=== PATIENT | female | born 1945 | race African-American/Black ===

== ENCOUNTER 2021-05-13 07:58 | Emergency (ER) | payer MEDICARE, MEDICAID ==
[~2021-05-13] VITALS: Ht 162.6 cm; Wt 57.0 kg
[2021-05-13] MEDS ORDERED: MORPHINE SULFATE 4 MG/ML CPJ (NOT FOR IM USE) IV STA (09:10)
[2021-05-13] MEDS ORDERED: ONDANSETRON HCL 4MG/2ML INJ IV STA (09:10)
[2021-05-13] MEDS ORDERED: SODIUM CHLORIDE 0.9% 1,000 ML IV ONE (09:15)
[2021-05-13 09:51] LABS: BASOPHILS % 0.8 % (0.0-2.0); EOSINOPHILS % 0.1 % (0.0-5.0); HEMATOCRIT. 44.4 % (36.0-48.0); HEMOGLOBIN. 15.2 g/dL (12.0-16.0); LYMPHOCYTES % 14.1 % (20.0-50.0); MEAN CORPUSCULAR HEMOGLOBIN 30.7 pg (28.0-32.0); MEAN PLATELET VOLUME 8.5 fl (7.4-10.4); MONOCYTES % 10.3 % (2.0-8.0); NEUTROPHILS % 74.7 % (40.0-76.0); PLATELET 361 x1000/uL (130-400); RED BLOOD CELL COUNT 4.94 mill/uL (4.2-5.4); RED CELL DISTRIBUTION WIDTH 13.4 % (11.6-14.6)
[2021-05-13 09:56] LABS: CHLORIDE 101 mEq/L (98-107)
[2021-05-13] MEDS ORDERED: ONDANSETRON HCL 4MG/2ML INJ IV ONE (11:30)
[2021-05-13] MEDS ORDERED: MORPHINE SULFATE 4 MG/ML CPJ (NOT FOR IM USE) IV ONE (11:30)
[2021-05-13] MEDS ORDERED: MORPHINE SULFATE 2 MG/ML CPJ (NOT FOR IM USE) IV PRN (16:30)
[2021-05-13] MEDS ORDERED: KETOROLAC 15MG/ML VIAL IV ONE (16:30)
[2021-05-13] MEDS ORDERED: ASPIRIN 81MG TABLET PO SCH (16:30)
[2021-05-13] MEDS ORDERED: METOCLOPRAMIDE HCL 10MG/2ML VIAL IV ONE (16:30)
[2021-05-13] MEDS ORDERED: NALOXONE HCL 0.4MG/ML VIAL IV PRN (16:30)
[2021-05-13] MEDS ORDERED: DEXTROSE 50% WATER 50ML SYRINGE IV PRN (16:30)
[2021-05-13] MEDS ORDERED: KETOROLAC 30MG/ML VIAL IV NR (16:45)
[2021-05-13] MEDS ORDERED: BLOOD SUGAR DIAGNOSTIC STRIP TEST SCH (17:00)
[2021-05-13 18:00] VITALS: BP 129/89
[2021-05-13] MEDS ORDERED: INSULIN LISPRO 100 UNITS/ML SUBCUT SCH (18:20)
[2021-05-13] MEDS ORDERED: FAMOTIDINE 20MG TABLET PO SCH (21:00)
== END 2021-05-13 18:50 | disposition short-term general hospital (02) ==
LOC: ER 07:58 → EDBEDREQ 13:21 → EDBEDREQTM 13:21 → ENRESERV 13:45 → CANRESERV 13:45 → ENRESERV 18:43 → ER 18:50 → ENRESERV 18:51 → CANRESERV 18:51 → CANBEDREQ 22:08
DX: R07.89 Other chest pain (principal); K64.4 Residual hemorrhoidal skin tags; I11.0 Hypertensive heart disease with heart failure; I50.9 Heart failure, unspecified; E11.9 Type 2 diabetes mellitus without complications; I25.10 Atherosclerotic heart disease of native coronary artery without angina pectoris; I25.2 Old myocardial infarction; Z20.822 Contact with and (suspected) exposure to COVID-19; Z98.61 Coronary angioplasty status; Z79.01 Long term (current) use of anticoagulants
CPT/HCPCS: 36415; 71045; 74176; 80053; 82962; 83690; 83880; 84484; 85025; 87426; 93005; 96374; 96375; 96376; 99285; C1893; J1885; J2270; J2405; J2765; J7030